=== PATIENT | male | born 1995 | race American Indian/Alaskan Native ===

== ENCOUNTER 2017-01-23 08:17 | Emergency (ER) | payer MEDICAID, OTHER ==
[2017-01-23 08:40] VITALS: BP 111/61
--- NOTE | 2017-01-23 09:54 | Emergency Department Report ---
ED General Adult HPI - General Chief complaint: Pain General Stated complaint: STD TESTING Time Seen by Provider: 01/23/17 09:28 Source: patient Mode of arrival: Ambulatory Limitations: No Limitations - History of Present Illness Initial comments: PT states he is sexually active with transgendered partner. PT states partner showed him copies of negative STD testing. PT states his throat has been a little sore and he is concerned for STD. PT denies penile pain, discharge, or dysuria. MD Complaint: possible std -: Gradual, days(s) Location: mouth Consistency: intermittent Improves with: none Worsens with: none Associated Symptoms: denies other symptoms. denies: fever/chills, loss of appetite, nausea/vomiting Treatments Prior to Arrival: none - Related Data Previous Rx's Medication Instructions Recorded Last Taken Type Acetamin/Codeine 120-12Mg/5 ml 5 ml PO Q8H PRN #100 ml 06/19/14 Unknown Rx [Tylenol/Codeine 120-12 mg/5 ml] Amoxicillin [Trimox CAP] 500 mg PO Q6H #40 capsule 06/19/14 Unknown Rx Ibuprofen [Motrin 600 MG tab] 600 mg PO Q8H PRN #30 tablet 06/19/14 Unknown Rx Prednisone [predniSONE 5 mg (6-Day 5 mg PO .TAPER #1 tab.ds.pk 06/19/14 Unknown Rx Pack, 21 Tabs)] Allergies Allergy/AdvReac Type Severity Reaction Status Date / Time No Known Allergies Allergy Unverified 01/23/17 08:40 ED Review of Systems ROS: Stated complaint: STD TESTING Other details as noted in HPI Comment: All other systems reviewed and negative Constitutional: denies: chills, fever, malaise Gastrointestinal: abdominal pain (pt reports, mild intermittent lower abd pain ) Genitourinary: denies: dysuria, frequency, discharge, testicular pain, testicular mass Skin: denies: rash ED Past Medical Hx - Past Medical History Previous Medical History?: No Additional medical history: Sinus problems - Surgical History Past Surgical History?: No - Social History Smoking Status: Never Smoker Substance Use Type: Marijuana - Medications Home Medications: Home Medications Medication Instructions Recorded Confirmed Last Taken Type Acetamin/Codeine 120-12Mg/5 ml 5 ml PO Q8H PRN #100 ml 06/19/14 Unknown Rx [Tylenol/Codeine 120-12 mg/5 ml] Amoxicillin [Trimox CAP] 500 mg PO Q6H #40 capsule 06/19/14 Unknown Rx Ibuprofen [Motrin 600 MG tab] 600 mg PO Q8H PRN #30 tablet 06/19/14 Unknown Rx Prednisone [predniSONE 5 mg (6-Day 5 mg PO .TAPER #1 tab.ds.pk 06/19/14 Unknown Rx Pack, 21 Tabs)] ED Physical Exam - General Limitations: No Limitations General appearance: alert, in no apparent distress - Head Head exam: Present: atraumatic, normocephalic, normal inspection - Eye Eye exam: Present: normal appearance, PERRL, EOMI. Absent: conjunctival injection - ENT ENT exam: Present: normal exam, normal orophraynx, mucous membranes moist, normal external ear exam - Neck Neck exam: Present: normal inspection, full ROM. Absent: tenderness, meningismus, lymphadenopathy - Respiratory Respiratory exam: Present: normal lung sounds bilaterally. Absent: respiratory distress, wheezes, rales, rhonchi - Cardiovascular Cardiovascular Exam: Present: regular rate, normal rhythm. Absent: normal heart sounds - GI/Abdominal GI/Abdominal exam: Present: soft. Absent: distended, tenderness, guarding, rebound - Extremities Exam Extremities exam: Present: normal inspection, full ROM - Back Exam Back exam: Present: normal inspection, full ROM. Absent: tenderness, CVA tenderness (R), CVA tenderness (L), muscle spasm, paraspinal tenderness, vertebral tenderness - Neurological Exam Neurological exam: Present: alert, oriented X3, normal gait - Psychiatric Psychiatric exam: Present: normal affect, normal mood - Skin Skin exam: Present: warm, dry, intact, normal color ED Course Vital Signs 01/23/17 08:30 Temperature 98.6 F Pulse Rate 85 Respiratory 16 Rate Blood Pressure 111/61 O2 Sat by Pulse 100 Oximetry - Reevaluation(s) Reevaluation #1: 01/23/17 11:31 PT aware of UA result. PT offered empiric treatment for gc/ ct. pt declined. PT aware he will need to follow up with his culture results. PT has no questions at this time. - Pulse Oximetry Interpretation Digit-Finger Initial Pulse Oximetry Readin Actions Taken: none ED Medical Decision Making - Differential Diagnosis std, well worried Critical Care Time: No Critical care attestation.: If time is entered above; I have spent that time in minutes in the direct care of this critically ill patient, excluding procedure time. ED Disposition Clinical Impression: Risky sexual behavior Pharyngitis Qualifiers: Pharyngitis/tonsillitis etiology: unspecified etiology Qualified Code(s): J02.9 - Acute pharyngitis, unspecified Disposition: TO HOME OR SELFCARE Is pt being admited?: No Does the pt Need Aspirin: No Condition: Stable Instructions: Safe Sex (ED), Sexually Transmitted Diseases (ED), Pharyngitis ( ED) Additional Instructions: follow up with your culture results - they take 3-5 days You can go to medical records next week for copies of your results IF you tested positive, you will need to be treated and your current sexual partner(s) will need testing/ treatment you can follow up with the health dept or pcp for full panel std testing Referrals: PRIMARY CAREMD [Primary Care Provider] - 3-5 Days ZABRINA EM MD [Staff Physician] - 3-[address] [facility] [Outside] - 3-5 Days [facility] [Outside] - 3-5 Days Forms: Work/School Release Form(ED) Time of Disposition: 11:37
[2017-01-23 11:19] LABS: Bilirubin,Urine NEG (Negative); Blood,Urine NEG (Negative); Ketones,Urine NEG (Negative); Leukocyte Esterase,Urine NEG (Negative); Mucus,Urine FEW /HPF; Nitrite,Urine NEG (Negative); Protein,Urine <15 mg/dL mg/dL (Negative); RBC,Urine < 1.0 /HPF (0.0-6.0)
== END 2017-01-23 11:30 | disposition home or self-care (01) ==
LOC: ED 08:17
DX: J02.9 Acute pharyngitis, unspecified (principal); F12.10 Cannabis abuse, uncomplicated
CPT/HCPCS: 81001; 87591; 99283

== ENCOUNTER 2017-05-30 11:13 | Emergency (ER) | payer SELFPAY ==
[2017-05-30 11:23] VITALS: BP 117/71
[2017-05-30] MEDS ORDERED: MOTRIN PO ONE (12:16)
[2017-05-30] MEDS ORDERED: THERMAZENE 50 GRAM TP ONE (12:17)
--- NOTE | 2017-05-30 13:25 | Emergency Department Report ---
ED Upper Extremity Inj HPI - General Chief Complaint: Wound/Laceration Stated Complaint: BILATERAL HAND INJURY Time Seen by Provider: 05/30/17 12:17 Source: patient Mode of arrival: Ambulatory Limitations: No Limitations - History of Present Illness Complaint: Injury to:: right -: Sudden (FALL THIS AM WHILE ON SCOOTER) Other Extremity Injury: Fingers: Right (5TH), Hand: Left, Wrist: Right Other Injuries: none Handedness: right Place: home Improves With: none Worsens With: none, movement of extremity Context: fall Associated Symptoms: denies other symptoms. denies: weakness, numbness, neck pain - Related Data Previous Rx's Medication Instructions Recorded Last Taken Type traMADol [Ultram] 50 mg PO Q6HR PRN #12 tablet 05/30/17 Unknown Rx Allergies Allergy/AdvReac Type Severity Reaction Status Date / Time No Known Allergies Allergy Verified 05/30/17 11:18 ED Review of Systems ROS: Stated complaint: BILATERAL HAND INJURY Other details as noted in HPI Comment: TDAP UTD Musculoskeletal: other (L WRIST AND HAND PAIN) Skin: other (R HAND ABRASION) ED Past Medical Hx - Past Medical History Previous Medical History?: No Additional medical history: Sinus problems - Surgical History Past Surgical History?: Yes Hx Cholecystectomy: Yes - Social History Smoking Status: Never Smoker Substance Use Type: None - Medications Home Medications: Home Medications Medication Instructions Recorded Confirmed Last Taken Type traMADol [Ultram] 50 mg PO Q6HR PRN #12 tablet 05/30/17 Unknown Rx ED Physical Exam - General Limitations: No Limitations General appearance: alert, in no apparent distress - Eye Eye exam: Present: PERRL Pupils: Present: normal accommodation - ENT ENT exam: Present: mucous membranes moist - Neck Neck exam: Present: normal inspection - Respiratory Respiratory exam: Present: normal lung sounds bilaterally - Cardiovascular Cardiovascular Exam: Present: regular rate - GI/Abdominal GI/Abdominal exam: Present: soft - Extremities Exam Extremities exam: Present: tenderness (L WRIST), normal capillary refill - Expanded Upper Extremity Exam Left Shoulder Exam: Present: normal inspection Upper Arm exam: Present: normal inspection Elbow exam: Present: normal inspection Forearm Wrist exam: Present: normal inspection, full ROM (W PAIN), tenderness ( WRIST), swelling (WRIST), abrasion (FINGER). Absent: laceration, ecchymosis, deformity, crepidus, dislocation, erythema, tenderness over anatomical snuff box , pain with axial thumb loading Hand Wrist exam: Present: full ROM, swelling, abrasion (FINGER) Neuro motor exam: Present: wrist extension intact Neurosensory exam: Present: radial nerve intact, ulnar nerve intact, median nerve intact Vascular: Present: normal capillary refill Right Hand Wrist exam: Present: other (ABRASION MID PALMAR SURFACE HAND- NO LAC) ED Course Vital Signs 05/30/17 11:18 Temperature 98.7 F Pulse Rate 80 Respiratory 18 Rate Blood Pressure 117/71 O2 Sat by Pulse 99 Oximetry - Reevaluation(s) Reevaluation #1: 05/30/17 13:22 XRAY NOTED WOUND CARE SPLINT ICE MEDICATED FOR PAIN 05/30/17 13:40 X RAY NOTED N/V INTACT NO SNUFF BOX RAPID CAP REFILL GOOD PULSES CAN MOVE IN ROM BUT W PAIN SPLINT AND DC W ORTHO FOLLOW UP ED Medical Decision Making - Radiology Data Radiology results: report reviewed, image reviewed - Medical Decision Making DIS RAD FRACTURE N/V INTACT - Differential Diagnosis RO FX Critical care attestation.: If time is entered above; I have spent that time in minutes in the direct care of this critically ill patient, excluding procedure time. ED Disposition Clinical Impression: Fall, Abrasion, Fracture, radius Disposition: DC- TO HOME OR SELFCARE Is pt being admited?: No Does the pt Need Aspirin: No Condition: Stable Instructions: Arm Fracture in Adults (ED), Abrasion (ED) Additional Instructions: ICE REST ELEVATE SPLINT MOTRIN 800 MG OVER THE COUNTER EVERY 8 HOURS FOR MILD PAIN; TAKE W FOOD ULTRAM FOR SEVERE PAIN ONLY FOLLOW UP ORTHO THURSDAY Prescriptions: traMADol [Ultram] 50 mg PO Q6HR PRN #12 tablet PRN Reason: Pain Referrals: PRIMARY CAREMD [Primary Care Provider] - 3-5 Days YOUNG OJEDA MD [Staff Physician] - 3-5 Days Time of Disposition: 13:
--- NOTE | 2017-05-30 13:43 | XRay Report ---
XRAY LEFT WRIST THREE VIEWS:05/30/17 11:13:00 CLINICAL: Fall and left wrist pain. FINDINGS: Avulsion fracture of the ulnar styloid versus an os triangulare which is a normal variant of anatomy. No other fracture. The joint spaces are normal. The distal radius and carpal bones are intact. Normal soft tissues. IMPRESSION: Avulsion fracture of the ulnar styloid versus os triangulare. If this is a fracture, there should be point tenderness at the styloid. A comparison view of the opposite wrist would also be helpful to see if there is a matching os triangulare on the opposite side which make fracture much less likely.
--- NOTE | 2017-05-30 13:45 | XRay Report ---
XRAY LEFT HAND THREE VIEWS: 05/30/17 11:13:00 CLINICAL: Fall and left hand pain. FINDINGS: The bones of the hand and wrist are normal. Avulsion fracture of the ulnar styloid versus os triangulare. The distal radius is normal. Normal soft tissues. IMPRESSION: Avulsion fracture of the ulnar styloid versus os triangulare. See the wrist report for further discussion.
== END 2017-05-30 14:50 | disposition home or self-care (01) ==
LOC: ED 11:13
DX: S52.502A Unspecified fracture of the lower end of left radius, initial encounter for closed fracture (principal); S60.511A Abrasion of right hand, initial encounter; W05.1XXA Fall from non-moving nonmotorized scooter, initial encounter; Y93.89 Activity, other specified; Y99.8 Other external cause status; Y92.009 Unspecified place in unspecified non-institutional (private) residence as the place of occurrence of the external cause

== ENCOUNTER 2019-06-02 20:08 | Emergency (ER) | payer SELFPAY ==
--- NOTE | 2019-06-02 21:15 | Emergency Department Report ---
Blank Doc - Documentation Documentation: 23-year-old male that presents with testicular pain and swelling. This initial assessment/diagnostic orders/clinical plan/treatment(s) is/are subject to change based on patient's health status, clinical progression and re- assessment by fellow clinical providers in the ED. Further treatment and workup at subsequent clinical providers discretion. Patient/guardians urged not to elope from the ED as their condition may be serious if not clinically assessed and managed. Initial orders include: 1- Patient sent to [facility] for further evaluation and treatment 2- UA 3- Stat US doppler ordered-Tech notified of stat US
[2019-06-02 21:16] VITALS: BP 123/77
[2019-06-02 22:42] LABS: Bilirubin,Urine NEG (Negative); Blood,Urine NEG (Negative); Color,Urine Amber (Yellow); Mucus,Urine FEW /HPF; Protein,Urine <15 mg/dL mg/dL (Negative)
--- NOTE | 2019-06-02 22:57 | Ultrasound Report ---
SCROTAL ULTRASOUND WITH DOPPLER HISTORY: testicular pain COMPARISON: None. TECHNIQUE: Grayscale, color and spectral Doppler images were obtained of the scrotum. FINDINGS: RIGHT: Right testicle: No significant abnormality. No mass. Right testicular size: 4.5 x 1.9 x 2.9 cm. Right epididymis: No significant abnormality. LEFT: Left testicle: No significant abnormality. No mass. Left testicular size: 4.5 x 2.1 x 3.0 cm. Left epididymis: No significant abnormality. Additional findings: None. IMPRESSION: 1. No significant abnormality. Signer Name: Maritza Jessica MD Signed: 06/02/2019 10:53 PM Workstation Name: [id number]
--- NOTE | 2019-06-03 01:18 | Emergency Department Report ---
ED Male HPI - General Chief complaint: Urogenital-Male Stated complaint: PAIN IN TESTICAL/GROIN AREA Time Seen by Provider: 06/02/19 21:13 Source: patient Mode of arrival: Ambulatory Limitations: No Limitations - History of Present Illness Initial comments: pt is a 23-year-old male presents emergency room with complaints of penile and scrotal pain that began on [id number]. He states that he was having sexual intercourse and believes he injured himself. He denies any penile discharge, scrotal or testicular swelling, dysuria, hematuria, blood from the penis. He states that it hurts with coughing and moving. He states he is sexually active and uses protection. He denies any past medical history or allergies to medications. He denies any STD history. - Related Data Previous Rx's Medication Instructions Recorded Last Taken Type traMADoL [Ultram] 50 mg PO Q6HR PRN #12 tablet 05/30/17 Unknown Rx Allergies Allergy/AdvReac Type Severity Reaction Status Date / Time No Known Allergies Allergy Verified 05/30/17 11:18 ED Review of Systems ROS: Stated complaint: PAIN IN TESTICAL/GROIN AREA Other details as noted in HPI Comment: All other systems reviewed and negative ED Past Medical Hx - Past Medical History Previous Medical History?: Yes Additional medical history: Sinus problems - Surgical History Past Surgical History?: Yes Hx Cholecystectomy: Yes - Social History Smoking Status: Never Smoker Substance Use Type: None - Medications Home Medications: Home Medications Medication Instructions Recorded Confirmed Last Taken Type traMADoL [Ultram] 50 mg PO Q6HR PRN #12 tablet 05/30/17 Unknown Rx ED Physical Exam - General Limitations: No Limitations General appearance: alert, in no apparent distress - Head Head exam: Present: atraumatic, normocephalic - Eye Eye exam: Present: normal appearance - ENT ENT exam: Present: mucous membranes moist - exam: Present: other (salvage grinder: nita, EMT, no TTP of the penis or testicles, no edema, no erythema, no lesions/blisters, no ecchymosis, no signs of contusion or hematoma, he is able to move the penis). Absent: testicular tenderness, urethral discharge, scrotal swelling External exam: Present: normal external exam. Absent: erythema, swelling, lesions, lacerations, ecchymosis, bleeding - Neurological Exam Neurological exam: Present: alert, oriented X3 - Psychiatric Psychiatric exam: Present: normal affect, normal mood - Skin Skin exam: Present: warm, dry, intact ED Course Vital Signs 06/02/19 06/03/19 20:33 01:20 Temperature 98.6 F Pulse Rate 70 78 Respiratory 20 16 Rate Blood Pressure 123/77 O2 Sat by Pulse 99 96 Oximetry ED Medical Decision Making - Radiology Data Radiology results: report reviewed SCROTAL ULTRASOUND WITH DOPPLER HISTORY: testicular pain COMPARISON: None. TECHNIQUE: Grayscale, color and spectral Doppler images were obtained of the scrotum. FINDINGS: RIGHT: Right testicle: No significant abnormality. No mass. Right testicular size: 4.5 x 1.9 x 2.9 cm. Right epididymis: No significant abnormality. LEFT: Left testicle: No significant abnormality. No mass. Left testicular size: 4.5 x 2.1 x 3.0 cm. Left epididymis: No significant abnormality. Additional findings: None. IMPRESSION: 1. No significant abnormality. Signer Name: Maritza Jessica MD Signed: 06/02/2019 10:53 PM Workstation Name: [id number] Transcribed By: [facility] Dictated By: Maritza Jessica MD Electronically Authenticated By: Maritza Jessica MD Signed Date/Time: 06/02/192252 DD/ 51 TD/TT: - Medical Decision Making pt is a 23-year-old male presents emergency room with complaints of penile and scrotal pain that began on [id number]. He states that he was having sexual intercourse and believes he injured himself. He denies any penile discharge, scrotal or testicular swelling, dysuria, hematuria, blood from the penis. He states that it hurts with coughing and moving. He states he is sexually active and uses protection. He denies any past medical history or allergies to medications. He denies any STD history. vitals are normal. on exam: salvage grinder: nita, EMT, no TTP of the penis or testicles, no edema, no erythema, no les ions/blisters, no ecchymosis, no signs of contusion or hematoma, he is able to move the penis. scrotal US: 1. No significant abnormality. UA is WNL, no WBCs/RBCs. G/C sent. offered pt prophylactic tx for G/C and he declined and states he will wait for results. advised pt to please follow-up with a urologist in the next 2-3 days for further evaluation and management. 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 Return to the emergency room for any new or worsening symptoms. - Differential Diagnosis UTI, STD, hydrocele, testicular torsion, mass, injury to penis Critical care attestation.: If time is entered above; I have spent that time in minutes in the direct care of this critically ill patient, excluding procedure time. ED Disposition Clinical Impression: Penile pain, Scrotum pain Disposition: TO HOME OR SELFCARE Is pt being admited?: No Does the pt Need Aspirin: No Condition: Stable Additional Instructions: Please follow-up with a urologist in the next 2-3 days for further evaluation and management. 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 Return to the emergency room for any new or worsening symptoms. Referrals: BRIAN KIRAN MD [Staff Physician] - 2-3 Days RICO ABDUL MD [Staff Physician] - 2-3 Days Time of Disposition: 01:17 Print Language: TAJIK
== END 2019-06-03 01:20 | disposition home or self-care (01) ==
LOC: ED 20:08
DX: N48.89 Other specified disorders of penis (principal); N50.82 Scrotal pain; Z90.49 Acquired absence of other specified parts of digestive tract; Z79.899 Other long term (current) drug therapy
CPT/HCPCS: 81001; 87591; 93975

== ENCOUNTER 2020-12-10 13:36 | Emergency (ER) | payer SELFPAY ==
--- NOTE | 2020-12-10 14:10 | XRay Report ---
CHEST 2 VIEWS INDICATION / CLINICAL INFORMATION: chest pain. COMPARISON: None available. FINDINGS: SUPPORT DEVICES: None. HEART / MEDIASTINUM: No significant abnormality. LUNGS / PLEURA: No significant pulmonary or pleural abnormality. No pneumothorax. ADDITIONAL FINDINGS: No significant additional findings. IMPRESSION: 1. No acute findings. Signer Name: Haroon Wilson MD Signed: 12/10/2020 2:06 PM Workstation Name: [id number]
[2020-12-10] MEDS ORDERED: HYDROcodone/ACETAMINOPHEN 5-325 MG TAB PO ONE (16:12)
--- NOTE | 2020-12-10 16:46 | Emergency Department Report ---
ED General Adult HPI - General Chief complaint: Chest Pain Stated complaint: RT SIDE CHEST PAIN Time Seen by Provider: 12/10/20 16:03 Source: patient Mode of arrival: Ambulatory Limitations: No Limitations - History of Present Illness Initial comments: Patient is a 25-year-old male presents emergency room complaints of right-sided chest pain that began yesterday. He states it feels like a sharp pain. He states his pain is worse with taking a deep breath. Patient states that last week he traveled to [place] on a [employer] bus and it took him 2 1/2 days. He denies shortness of breath but states that it hurts. He states he did have symptoms like this similar once before when he had pneumonia. He denies any fever, cough, nausea, vomiting, diarrhea, leg swelling. He denies any other past medical history. No allergies to medications. Severity scale (0 -10): 8 - Related Data Previous Rx's Medication Instructions Recorded Last Taken Type traMADoL [Ultram] 50 mg PO Q6HR PRN #12 tablet 05/30/17 Unknown Rx Acetaminophen/Codeine [Tylenol 1 tab PO Q6H PRN #12 tab 12/10/20 Unknown Rx /Codeine # 3 tab] Azithromycin [Zithromax TAB] 250 mg PO QDAY 5 Days #6 tablet 12/10/20 Unknown Rx Doxycycline Hyclate [Doxycycline 100 mg PO BID 7 Days #14 tab 12/10/20 Unknown Rx Hyclate TAB] Allergies Allergy/AdvReac Type Severity Reaction Status Date / Time No Known Allergies Allergy Verified 12/10/20 13:48 ED Review of Systems ROS: Stated complaint: RT SIDE CHEST PAIN Other details as noted in HPI Comment: All other systems reviewed and negative ED Past Medical Hx - Past Medical History Additional medical history: Sinus problems - Surgical History Hx Cholecystectomy: Yes - Social History Smoking Status: Never Smoker Substance Use Type: None - Medications Home Medications: Home Medications Medication Instructions Recorded Confirmed Last Taken Type traMADoL [Ultram] 50 mg PO Q6HR PRN #12 tablet 05/30/17 Unknown Rx Acetaminophen/Codeine [Tylenol 1 tab PO Q6H PRN #12 tab 12/10/20 Unknown Rx /Codeine # 3 tab] Azithromycin [Zithromax TAB] 250 mg PO QDAY 5 Days #6 tablet 12/10/20 Unknown Rx Doxycycline Hyclate [Doxycycline 100 mg PO BID 7 Days #14 tab 12/10/20 Unknown Rx Hyclate TAB] ED Physical Exam - General Limitations: No Limitations General appearance: alert, in no apparent distress - Head Head exam: Present: atraumatic, normocephalic - Eye Eye exam: Present: normal appearance - ENT ENT exam: Present: mucous membranes moist - Respiratory Respiratory exam: Present: normal lung sounds bilaterally. Absent: respiratory distress, wheezes, rales, rhonchi, stridor, chest wall tenderness, accessory muscle use, decreased breath sounds, prolonged expiratory - Cardiovascular Cardiovascular Exam: Present: regular rate, normal rhythm, normal heart sounds. Absent: systolic murmur, diastolic murmur, rubs, gallop - Neurological Exam Neurological exam: Present: alert, oriented X3 - Psychiatric Psychiatric exam: Present: normal affect, normal mood - Skin Skin exam: Present: warm, dry, intact ED Course Vital Signs 12/10/20 12/10/20 12/10/20 13:48 16:26 17:36 Temperature 98.8 F Pulse Rate 119 H 81 Respiratory 22 16 12 Rate Blood Pressure 110/54 Blood Pressure 135/65 [Left] O2 Sat by Pulse 98 97 Oximetry 12/10/20 17:39 Temperature 98.8 F Pulse Rate 81 Respiratory 12 Rate Blood Pressure Blood Pressure 135/65 [Left] O2 Sat by Pulse 97 Oximetry ED Medical Decision Making - Lab Data Result diagrams: 12/10/20 16:19 12/10/20 16:19 Lab Results 12/10/20 12/10/20 12/10/20 Range/Units 16:19 16:19 16:19 WBC 17.2 H (4.5-11.0) K/mm3 RBC 4.94 (3.65-5.03) M/mm3 Hgb 15.0 (11.8-15.2) gm/dl Hct 42.9 (35.5-45.6) % MCV 87 (84-94) fl MCH 30 (28-32) pg MCHC 35 H (32-34) % RDW 15.7 H (13.2-15.2) % Plt Count 421 (140-440) K/mm3 Lymph % (Auto) 15.9 (13.4-35.0) % [place] % (Auto) 14.3 H (0.0-7.3) % Eos % (Auto) 1.4 (0.0-4.3) % Baso % (Auto) 1.0 (0.0-1.8) % Lymph # (Auto) 2.7 (1.2-5.4) K/mm3 [place] # (Auto) 2.5 H (0.0-0.8) K/mm3 Eos # (Auto) 0.2 (0.0-0.4) K/mm3 Baso # (Auto) 0.2 H (0.0-0.1) K/mm3 Seg Neutrophils % 67.4 (40.0-70.0) % Seg Neutrophils # 11.6 H (1.8-7.7) K/mm3 D-Dimer 794.56 H (0-234) ng/mlDDU Sodium 134 L (137-145) mmol/L Potassium 4.6 (3.6-5.0) mmol/L Chloride 100.1 (98-107) mmol/L Carbon Dioxide 23 (22-30) mmol/L Anion Gap 16 mmol/L BUN 4 L (9-20) mg/dL Creatinine 0.6 L (0.8-1.3) mg/dL Estimated GFR > 60 ml/min BUN/Creatinine Ratio 7 % Glucose 93 (75-100) mg/dL Calcium 9.6 (8.4-10.2) mg/dL Total Bilirubin 2.50 H (0.1-1.2) mg/dL AST 87 H (5-40) units/L ALT 145 H (7-56) units/L Alkaline Phosphatase 309 H (35-129) units/L Troponin T < 0.010 (0.00-0.029) ng/mL NT-Pro-B Natriuret Pep 45.75 (0-450) pg/mL Total Protein 7.7 (6.3-8.2) g/dL Albumin 4.4 (3.9-5) g/dL Albumin/Globulin Ratio 1.3 % Vital Signs 12/10/20 12/10/20 12/10/20 13:48 16:26 17:36 Temperature 98.8 F Pulse Rate 119 H 81 Respiratory 22 16 12 Rate Blood Pressure 110/54 Blood Pressure 135/65 [Left] O2 Sat by Pulse 98 97 Oximetry 12/10/20 17:39 Temperature 98.8 F Pulse Rate 81 Respiratory 12 Rate Blood Pressure Blood Pressure 135/65 [Left] O2 Sat by Pulse 97 Oximetry - EKG Data EKG shows normal: sinus rhythm, axis, intervals, QRS complexes, ST-T waves Rate: normal - Radiology Data Radiology results: report reviewed Ordering Physician: EVAN LANCASTER MD Date of Service: 12/10/20 Procedure(s): XR chest routine 2V Accession Number(s): [id number] cc: EVAN LANCASTER MD Fluoro Time In Minutes: CHEST 2 VIEWS INDICATION / CLINICAL INFORMATION: chest pain. COMPARISON: None available. FINDINGS: SUPPORT DEVICES: None. HEART / MEDIASTINUM: No significant abnormality. LUNGS / PLEURA: No significant pulmonary or pleural abnormality. No pneumothorax. ADDITIONAL FINDINGS: No significant additional findings. IMPRESSION: 1. No acute findings. Signer Name: Haroon Wilson MD Signed: 12/10/2020 2:06 PM Workstation Name: [id number] Transcribed By: ALVAREZ Dictated By: Haroon Wilson MD Electronically Authenticated By: Haroon Wilson MD Signed Date/Time: 12/10/20 1406 DD/ 1405 TD/TT: Ordering Physician: THELMA MORRISON Date of Service: 12/10/20 Procedure(s): CT angio chest Accession Number(s): [id number] cc: THELMA MORRISON CTA CHEST WITH CONTRAST INDICATION / CLINICAL INFORMATION: Pleuritic chest pain. Elevated d-dimer. TECHNIQUE: Axial CT images were obtained through the chest after injection of Omnipaque 350, 100 cc IV contrast. 3 plane MIP and/or 3D reconstructions were produced. All CT scans at this location are performed using CT dose reduction for ALARA by means of automated exposure control. COMPARISON: None available. FINDINGS: PULMONARY ARTERIES: No pulmonary emboli. THORACIC AORTA: No significant abnormality. HEART: No significant abnormality. CORONARY ARTERY CALCIFICATION: None. MEDIASTINUM / MARLENE: No significant abnormality. PLEURA: Small right basilar effusion. No pneumothorax. LUNGS: Mild volume loss/opacity consolidation at the right base. Findings are less prominent at the inferior aspect of the right upper lobe/right middle lobe. IMPRESSION: 1. No CT evidence for pulmonary embolism. 2. Small effusion with adjacent patchy consolidation right lung base. Suspect a combination of atelectasis and pneumonia. CT ABDOMEN AND PELVIS WITH CONTRAST INDICATION / CLINICAL INFORMATION: Upper abdominal pain. TECHNIQUE: Axial CT images were obtained through the abdomen and pelvis after Omnipaque 350, 100 cc IV contrast. All CT scans at this location are performed using CT dose reduction for ALARA by means of automated exposure control. COMPARISON: None available. FINDINGS: LOWER CHEST: No significant abnormality. LIVER: No significant abnormality. GALLBLADDER: Previous cholecystectomy. BILE DUCTS: No significant abnormality. PANCREAS: No significant abnormality. SPLEEN: No significant abnormality. ADRENALS: No significant abnormality. RIGHT KIDNEY / URETER: No significant abnormality. LEFT KIDNEY / URETER: No significant abnormality. STOMACH / SMALL BOWEL: No significant abnormality. COLON: No significant abnormality. APPENDIX: Nonvisualized. PERITONEUM: No free fluid. No free air. No fluid collection. LYMPH NODES: No significant adenopathy. VASCULAR STRUCTURES: No significant abnormality. URINARY BLADDER: No significant abnormality. REPRODUCTIVE ORGANS: No significant abnormality. ADDITIONAL FINDINGS: None. SKELETAL SYSTEM: No significant abnormality. IMPRESSION: No acute abnormality of the abdomen. Signer Name: Cem Burgess MD Signed: 12/10/2020 6:27 PM Workstation Name: [id number] Transcribed By: ES Dictated By: Cem Burgess MD Electronically Authenticated By: Cem Burgess MD Signed Date/Time: 12/10/201826 DD/ 15 TD/TT: Print Cancel - Medical Decision Making Patient is a 25-year-old male presents emergency room complaints of right-sided chest pain that began yesterday. He states it feels like a sharp pain. He states his pain is worse with taking a deep breath. Patient states that last week he traveled to [place] on a Grey[employer] bus and it took him 2 1/2 days. He denies shortness of breath but states that it hurts. He states he did have symptoms like this similar once before when he had pneumonia. He denies any fever, cough, nausea, vomiting, diarrhea, leg swelling. He denies any other past medical history. No allergies to medications. Initial vitals with tachycardia which improved upon repeat. Chest x-ray 1. No acute findings. EKG is within normal limits. Labs significant for leukocytosis, elevated D-dimer, elevated LFTs. CT angio chest: 1. No CT evidence for pulmonary embolism. 2. Small effusion with adjacent patchy consolidation right lung base. Suspect a combination of atelectasis and pneumonia. CT abdomen pelvis with IV contrast: IMPRESSION: No acute abnormality of the abdomen. Patient given IV ceftriaxone while in the emergency department and given pain medication with improvement of his symptoms. Discussed all results with patient and answer questions. Discussed case with Dr. Nevarez, ER attending who advised that patient may be discharged home and advised outpatient follow-up regarding elevation in LFTs. advised pt Please take medication as prescribed. Follow-up with your primary care doctor. Follow-up with a GI doctor regarding the elevation in your liver function test. Return to emergency room for any new or worsening symptoms. Critical care attestation.: If time is entered above; I have spent that time in minutes in the direct care of this critically ill patient, excluding procedure time. ED Disposition Clinical Impression: Pleural effusion, Elevated LFTs Pneumonia Qualifiers: Pneumonia type: due to unspecified organism Laterality: right Lung location: lo wer lobe of lung Qualified Code(s): J18.9 - Pneumonia, unspecified organism Disposition: TO HOME OR SELFCARE Is pt being admited?: No Does the pt Need Aspirin: No Condition: Stable Instructions: Community-Acquired Pneumonia, Adult, Bacterial Pneumonia (ED) Additional Instructions: Please take medication as prescribed. Follow-up with your primary care doctor. Follow-up with a GI doctor regarding the elevation in your liver function test. Return to emergency room for any new or worsening symptoms. Prescriptions: Doxycycline Hyclate [Doxycycline Hyclate TAB] 100 mg PO BID 7 Days #14 tab Acetaminophen/Codeine [Tylenol /Codeine # 3 tab] 1 tab PO Q6H PRN #12 tab PRN Reason: Pain , Severe (7-10) Azithromycin [Zithromax TAB] 250 mg PO QDAY 5 Days #6 tablet Referrals: BIB ONEAL MD [Staff Physician] - 2-3 Days [facility] [Provider Group] - 2-3 Days Time of Disposition: 18:57 Print Language: NAMIBIAN
[2020-12-10 16:47] LABS: Basophils # (Auto) 0.2 K/mm3 (0.0-0.1); Eosinophils # (Auto) 0.2 K/mm3 (0.0-0.4); Eosinophils % (Auto) 1.4 % (0.0-4.3); Hematocrit 42.9 % (35.5-45.6); Lymphocytes # (Auto) 2.7 K/mm3 (1.2-5.4); Lymphocytes % (Auto) 15.9 % (13.4-35.0); Mean Corpuscular HGB Conc 35 % (32-34); Mean Corpuscular Volume 87 fl (84-94); Monocytes # (Auto) 2.5 K/mm3 (0.0-0.8); Monocytes % (Auto) 14.3 % (0.0-7.3); Red Blood Count 4.94 M/mm3 (3.65-5.03); Red Cell Distribution Width 15.7 % (13.2-15.2)
[2020-12-10 16:53] LABS: Platelet Count 421 K/mm3 (140-440)
[2020-12-10 17:04] LABS: Alanine Aminotransferase 145 units/L (7-56); Albumin 4.4 g/dL (3.9-5); Blood Urea Nitrogen 4 mg/dL (9-20); Calcium 9.6 mg/dL (8.4-10.2); Hemolysis Index 57
[2020-12-10 17:25] LABS: BUN/Creatinine Ratio 7
[2020-12-10 17:40] VITALS: BP 135/65
--- NOTE | 2020-12-10 18:32 | Cat Scan Report ---
CTA CHEST WITH CONTRAST INDICATION / CLINICAL INFORMATION: Pleuritic chest pain. Elevated d-dimer. TECHNIQUE: Axial CT images were obtained through the chest after injection of Omnipaque 350, 100 cc I V contrast. 3 plane MIP and/or 3D reconstructions were produced. All CT scans at this location are pe rformed using CT dose reduction for ALARA by means of automated exposure control. COMPARISON: None available. FINDINGS: PULMONARY ARTERIES: No pulmonary emboli. THORACIC AORTA: No significant abnormality. HEART: No significant abnormality. CORONARY ARTERY CALCIFICATION: None. MEDIASTINUM / MARLENE: No significant abnormality. PLEURA: Small right basilar effusion. No pneumothorax. LUNGS: Mild volume loss/opacity consolidation at the right base. Findings are less prominent at the i nferior aspect of the right upper lobe/right middle lobe. IMPRESSION: 1. No CT evidence for pulmonary embolism. 2. Small effusion with adjacent patchy consolidation right lung base. Suspect a combination of atelec tasis and pneumonia. CT ABDOMEN AND PELVIS WITH CONTRAST INDICATION / CLINICAL INFORMATION: Upper abdominal pain. TECHNIQUE: Axial CT images were obtained through the abdomen and pelvis after Omnipaque 350, 100 cc I V contrast. All CT scans at this location are performed using CT dose reduction for ALARA by means o f automated exposure control. COMPARISON: None available. FINDINGS: LOWER CHEST: No significant abnormality. LIVER: No significant abnormality. GALLBLADDER: Previous cholecystectomy. BILE DUCTS: No significant abnormality. PANCREAS: No significant abnormality. SPLEEN: No significant abnormality. ADRENALS: No significant abnormality. RIGHT KIDNEY / URETER: No significant abnormality. LEFT KIDNEY / URETER: No significant abnormality. STOMACH / SMALL BOWEL: No significant abnormality. COLON: No significant abnormality. APPENDIX: Nonvisualized. PERITONEUM: No free fluid. No free air. No fluid collection. LYMPH NODES: No significant adenopathy. VASCULAR STRUCTURES: No significant abnormality. URINARY BLADDER: No significant abnormality. REPRODUCTIVE ORGANS: No significant abnormality. ADDITIONAL FINDINGS: None. SKELETAL SYSTEM: No significant abnormality. IMPRESSION: No acute abnormality of the abdomen. Signer Name: Cem Burgess MD Signed: 12/10/2020 6:27 PM Workstation Name: [id number]
[2020-12-10] MEDS ORDERED: cefTRIAXone/NS 1 GM/50 ML 1 GM/50 ML BAG IV ONE (18:41)
--- NOTE | 2020-12-11 11:15 | Electrocardiograph Report ---
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
== END 2020-12-10 19:50 | disposition home or self-care (01) ==
LOC: ED 13:36
DX: J90 Pleural effusion, not elsewhere classified (principal); J18.9 Pneumonia, unspecified organism; R94.5 Abnormal results of liver function studies; Z90.49 Acquired absence of other specified parts of digestive tract; Z79.899 Other long term (current) drug therapy
CPT/HCPCS: 36415; 71046; 71275; 74177; 80053; 83880; 84484; 85025; 85379; 93005; 96365; 99284; J0696; Q9967

== ENCOUNTER 2021-03-28 18:03 | Emergency (ER) | payer SELFPAY ==
[2021-03-28 18:23] VITALS: BP 123/74
--- NOTE | 2021-03-28 18:45 | Emergency Department Report ---
ED Neuro Deficit HPI - General Chief Complaint: Neuro Symptoms/Deficit Stated Complaint: ALLERGIC REACTION/FACE NUMB Time Seen by Provider: 03/28/21 18:30 Source: patient Mode of arrival: Ambulatory Limitations: No Limitations - History of Present Illness Initial Comments: Patient presents with facial abnormalities on the left. This started about 3 days ago. There is no history of trauma. He noticed that he was having a hard time moving his face, hard time swallowing, hard time closing his left eye. He ultimately decided to come here for evaluation and treatment. He has no symptomatology involving arms or legs. The right side of the face is on affected. This does affect the forehead, cheek, and lip. - Related Data Home Medications: Previous Rx's Medication Instructions Recorded Last Taken Type traMADoL [Ultram] 50 mg PO Q6HR PRN #12 tablet 05/30/17 Unknown Rx Acetaminophen/Codeine [Tylenol 1 tab PO Q6H PRN #12 tab 12/10/20 Unknown Rx /Codeine # 3 tab] Acyclovir [Zovirax Tab] 800 mg PO TID #30 tablet 03/28/21 Unknown Rx Prednisone [predniSONE 10 mg 10 mg PO .TAPER #1 tab.ds.pk 03/28/21 Unknown Rx (6-Day Pack, 21 Tabs)] Allergies/Adverse Reactions: Allergies Allergy/AdvReac Type Severity Reaction Status Date / Time No Known Allergies Allergy Verified 12/10/20 13:48 ED Review of Systems ROS: Stated complaint: ALLERGIC REACTION/FACE NUMB Other details as noted in HPI Comment: All other systems reviewed and negative Constitutional: denies: fever Eyes: as per HPI ENT: denies: ear pain Respiratory: denies: cough Cardiovascular: denies: chest pain Endocrine: denies: unexplained weight loss Gastrointestinal: denies: abdominal pain Genitourinary: denies: dysuria Musculoskeletal: denies: back pain Skin: denies: rash Neurological: as per HPI Hematological/Lymphatic: denies: easy bruising ED Past Medical Hx - Past Medical History Previous Medical History?: Yes Additional medical history: Sinus problems - Surgical History Past Surgical History?: Yes Hx Cholecystectomy: Yes - Family History Family history: no significant - Social History Smoking Status: Never Smoker Substance Use Type: None - Medications Home Medications: Home Medications Medication Instructions Recorded Confirmed Last Taken Type traMADoL [Ultram] 50 mg PO Q6HR PRN #12 tablet 12/16/17 Unknown Rx Acetaminophen/Codeine [Tylenol 1 tab PO Q6H PRN #12 tab 12/10/20 Unknown Rx /Codeine # 3 tab] Acyclovir [Zovirax Tab] 800 mg PO TID #30 tablet 03/28/21 Unknown Rx Prednisone [predniSONE 10 mg 10 mg PO .TAPER #1 tab.ds.pk 03/28/21 Unknown Rx (6-Day Pack, 21 Tabs)] ED Neuro Physical Exam - General Limitations: No Limitations, Other General appearance: alert (Pulse ox was noted and normal), in no apparent distress Suspected Stroke: No - Head Head exam: Present: other (Left facial droop and paralysis that includes the forehead. He has ptosis associated with this.) - Eye Eye exam: Present: PERRL, EOMI. Absent: scleral icterus - ENT ENT exam: Present: mucous membranes moist, normal external ear exam - Neck Neck exam: Present: normal inspection. Absent: meningismus - Respiratory Respiratory exam: Present: normal lung sounds bilaterally, respiratory distress - Cardiovascular Cardiovascular Exam: Present: regular rate, normal rhythm - GI/Abdominal GI/Abdominal exam: Present: soft. Absent: tenderness - Extremities Exam Extremities exam: Present: normal capillary refill. 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 - Medical Decision Making Patient presents with 3-day history of facial symptoms that are consistent with Gramajo's palsy. There is no facial rash that would suggest shingles or zoster. There is no trauma to suggest injury. He has no involvement of the arms or legs. I am not concerned for stroke. Patient has no neck injury. I do not believe this represents any type of vascular injury or dissection. Critical care attestation.: If time is entered above; I have spent that time in minutes in the direct care of this critically ill patient, excluding procedure time. ED Disposition Clinical Impression: Gramajo palsy Disposition: 01 HOME / SELF CARE / HOMELESS Is pt being admited?: No Condition: Stable Instructions: Gramajo Palsy, Adult Additional Instructions: Use artificial tears to keep your eye moist. Tape your eye shut at night. Return for problems. Follow-up as discussed. Prescriptions: Prednisone [predniSONE 10 mg (6-Day Pack, 21 Tabs)] 10 mg PO .TAPER #1 tab.ds.pk Acyclovir [Zovirax Tab] 800 mg PO TID #30 tablet Referrals: WALDO HURST MD [Staff Physician] - 3-5 Days
== END 2021-03-28 19:22 | disposition home or self-care (01) ==
LOC: ED 18:03
DX: G51.0 Bell's palsy (principal)
CPT/HCPCS: 99282